=== PATIENT | male | born 1970 | race American Indian/Alaskan Native ===

== ENCOUNTER 2018-03-09 11:25 | Emergency (ER) | payer OTHER ==
--- NOTE | 2018-03-09 12:30 | Emergency Department Report ---
ED Head Injury/Laceration HPI - HPI Occurred When: Today Mechanism: Direct Blow Location: Facial Pain: Severe (05/19) Tetanus Status: Not up to Date Symptoms: Loss of Consciousness: No, Nausea: No, Blurred Vision: No, Unusual Behavior: No, Headache: Yes (headache), Swelling: Yes (facial and nasal bone swelling), Bruising: Yes (left facial area), Break in Skin: Yes (right nasal area and forehead), Bleeding: No Other History: This is a 47-year-old male brought to the hospital by his family after working on 18 brannon and sarah fell and hit him in the face. He has bruising to right facial area with 2 laceration to face. He is reporting headache without any dizziness or vomiting. He denies any loss of consciousness. He reports mild dizziness. Blood pressure is elevated at 162 over 1-2 with a history of high blood pressure. Patient denies any neck pain or stiffness or any chest wall or abdominal injury. He denies back pain. Pain is 10 over 10 to facial bone and he said he has slight frontal headache. No alleviating or exacerbating factors. Tetanus shot is not up-to-date. ED General PMH - Past Medical History General Medical History: hypertension, other (history of nasal bone fracture 4) Surgical History: no surgical history LMP (females 10-50): not applicable - Family History Significant Family History: hypertension - Social History Smoking Status: Never Smoker Alcohol Use: none Drug Use: N ED Review of Systems ROS: Stated complaint: LACREATION Other details as noted in HPI Constitutional: denies: chills, fever Eyes: denies: eye pain, eye discharge, vision change ENT: other (facial pain). denies: ear pain, throat pain, dental pain, congestion Respiratory: denies: cough, shortness of breath, SOB with exertion, SOB at rest , stridor, wheezing Cardiovascular: denies: chest pain, palpitations, edema, syncope, paroxysmal nocturnal dyspnea Gastrointestinal: denies: abdominal pain, nausea, diarrhea Genitourinary: denies: urgency, dysuria Musculoskeletal: denies: back pain, joint swelling, arthralgia Skin: other (multiple laceration). denies: rash, lesions Neurological: headache, vertigo (dizziness). denies: weakness, numbness, paresthesias, confusion, abnormal gait Hematological/Lymphatic: easy bleeding Head Inj w/lac Physical Exam - Exam General: Vital signs noted. No distress. Alert and acting appropriately. This is a 47-year-old male well-nourished well-developed in no acute distress. He is nontoxic in appearance Adult Head Front + Back: 1 - Patient with T shaped laceration to right brow. 2 - Patient with T-shaped laceration to right brow extending below right brow. Irregular shape with minimal bleeding. 3 - Irregularly-shaped laceration to right nasal bone area with minimal bleed and 4 - Small abrasion to right facial bone at cheek. 5 - #5 with nasal bone swelling and tenderness to palpate with erythema. Head: Yes PERRL (EOM intact, sclera and conjunctiva normal and normal accommodation.), No Hemotympanum, No Hematoma/Ecchymosis, No Epistaxis, No Stepoff/Deformity, No Abrasion, No Foreign Body Wound Length (cm): 4 (2 left brow that is T-shaped and minimal bleeding) Laceration Location: Facial (small abrasions to right cheek bone.), Other ( patient also have 2 cm laceration to right nasal bone proximally.) Chest, Abd, & Ext: Yes Clear Lung Sounds (CTAB, no chest wall tenderness), Yes Regular Heart Rhythm (S1 and S2, regular rate and rhythm), No Neck Pain (full range of motion and no C-spine tenderness), No Chest Injury/Pain, No Heart Murmur, No Abdominal Tenderness (normal bowel sounds in all quadrants and NTTP) , No Back Tenderness (no vertebral or paraspinal tenderness), No Extremity Injury (No cce. + 2 pulses in all extremities, no neurovascular compromise) Neuroligical (Head Inj W/O Lac: Yes Normal Speech ( No facial droop.), Yes Normal Gait (bilateral hand pocket maker strong and equal), No Lethargy, No Disorientation (GCS of 15), No Focal Numbness, No Focal Weakness - Laceration /Wound Repair Right Face Wound Location: face (patient with laceration to right brow irregular shape and extending down to right facial area at in the canthus of eye) Wound Length (cm): 4 Wound's Depth, Shape: superficial, irregular, stellate Wound Explored: no foreign body removed Irrigated w/ Saline (ccs): 200 Betadine Prep?: Yes Anesthesia: 1% Lidocaine Volume Anesthetic (ccs): 2 Wound Debrided: moderate Wound Repaired With: sutures (Vicryl) Suture Size/Type: 5:0 Number of Sutures: 14 Layer Closure?: No Sterile Dressing Applied?: Yes Right Nose Wound Location: face (right nasal area proximal) Wound Length (cm): 2 Wound's Depth, Shape: superficial, irregular, contused tissue Wound Explored: no foreign body removed Irrigated w/ Saline (ccs): 100 Betadine Prep?: Yes Anesthesia: 1% Lidocaine Volume Anesthetic (ccs): 1 Wound Debrided: moderate Wound Repaired With: sutures Suture Size/Type: 6:0 (Vicryl) Number of Sutures: 4 Layer Closure?: No Sterile Dressing Applied?: Yes ED Disposition Clinical Impression: Laceration of multiple sites of face Nasal bones, closed fracture Qualifiers: Encounter type: initial encounter Qualified Code(s): S02.2XXA - Fracture of nasal bones, initial encounter for closed fracture Facial bruising Qualifiers: Encounter type: initial encounter Qualified Code(s): S00.83XA - Contusion of other part of head, initial encounter Headache Qualifiers: Headache type: unspecified Headache chronicity pattern: acute headache Intractability: not intractable Qualified Code(s): R51 - Headache Abrasion of face Qualifiers: Encounter type: initial encounter Qualified Code(s): S00.81XA - Abrasion of other part of head, initial encounter Minor head injury without loss of consciousness Qualifiers: Encounter type: initial encounter Qualified Code(s): S09.90XA - Unspecified injury of head, initial encounter Disposition: DC-01 TO HOME OR SELFCARE Is pt being admited?: No Does the pt Need Aspirin: No Condition: Stable Instructions: Nasal Fracture (ED), Laceration (ED), Minor Head Injury (ED), Acute Headache (ED), Absorbable Suture Care (ED) Additional Instructions: Please follow up with primary care and if he did not have a primary care follow- up at [facility] in 48 hours. Please follow up with ear nose and throat regarding nasal bone fracture in 48 hours Your sutures are absorbable so you will not need to come back to the hospital for removal but please see discharge instruction and suture care Take antibiotic as prescribed Ultram can make you drowsy. please not drive or operate heavy machinery while taking this medication. Take this medication for severe pain Take Motrin for moderate pain Apply ice the nasal bone area several times a day for 15 minutes at a time Prescriptions: Cephalexin [Keflex] 500 mg PO Q8HR 5 Days #15 cap Ibuprofen [Motrin 600 MG tab] 600 mg PO Q8H PRN #15 tablet PRN Reason: Pain traMADol [Ultram 50 MG tab] 50 mg PO Q6HR PRN #20 tablet PRN Reason: Pain Referrals: ALISON ALCARAZ MD [Staff Physician] - 2-3 Days PRIMARY CARE, [Primary Care Provider] - 2-3 Days [facility] [Outside] - 2-3 Days Forms: Accompanied Note, Work/School Release Form(ED) ED Medical Decision Making - Radiology Data Radiology results: report reviewed CT scan of head and brain without contrast and CT scan of the facial bones without contrast shows bilateral nasal bone fracture otherwise no intracranial abnormality and no other extracranial abnormality seen. Patient: SHIRA ASTORGA MR#: [id number] : 1970 Acct:[id number] Age/Sex: 47 / M ADM Date: 03/09/18 Loc: ED Attending Dr: Ordering Physician: DWAIN ASTORGA MD Date of Service: 03/09/18 Procedure(s): CT head/brain wo con Accession Number(s): [id number] cc: DWAIN ASTORGA MD CT HEAD WITHOUT CONTRAST: HISTORY: Dizzy, trauma to head. TECHNIQUE: Sequential 2.5mm CT images. COMPARISON: none. FINDINGS: Cerebral Parenchyma: Within normal limits. Cerebellum: Within normal limits. Brainstem: Within normal limits. Ventricles: Normal. Sella: Normal. Extra-axial spaces: Normal. Basal Cisterns: Normal. Intracranial Hemorrhage: None. Midline Shift: None. Calvarium: Normal. Bilateral nasal bone fractures and frontal soft tissue swelling are noted. Sinuses: Normal. Mastoid Air Cells: Normal. Visualized Orbits: Normal. IMPRESSION: Cranial CT scan within normal limits. Bilateral nasal bone fractures. Transcribed By: TTR Dictated By: NAT GALLEGOS JR, MD Electronically Authenticated By: NAT GALLEGOS JR, MD Signed Date/Time: 03/09/18 1300 Cat Scan Report Signed Patient: SHIRA ASTORGA MR#: [id number] : 1970 Acct:[id number] Age/Sex: 47 / M ADM Date: 03/09/18 Loc: ED Attending Dr: Ordering Physician: DWAIN ASTORGA MD Date of Service: 03/09/18 Procedure(s): CT facial bones wo con Accession Number(s): [id number] cc: DWAIN ASTORGA MD CT FACIAL BONES WITHOUT CONTRAST: HISTORY: Dizzy with trauma to head. TECHNIQUE: Helical CT images with sagittal and coronal CT reformations. FINDINGS: Mildly displaced bilateral nasal bone fractures are identified. All paranasal sinuses are clear. No sinus wall fracture, fluid level or opacification. The orbital cavities are symmetric and intact. The left mandibular condyle is not included. The remainder of the mandible is intact. The skull base and upper cervical spine demonstrate no evidence for acute injury. IMPRESSION: Bilateral nasal bone fractures. Transcribed By: TTR Dictated By: NAT GALLEGOS JR, MD Electronically Authenticated By: NAT GALLEGOS JR, MD Signed Date/Time: 03/09/18 1258 DD/ 1257 TD/TT: 03/09/18 1258 - Medical Decision Making This is a 47-year-old male here reports that he was working on his 18 brannon and jackhammer fall on his face. He is complaining a headache without any losing of consciousness, and facial wounds. Denies any neck pain or back pain. He is to be examined Patient was seen and examined by myself. He is neurologically intact. Head and neck exam is normal. Back exam is normal. His chest and abdominal exams normal. Patient's able ambulate without any difficulties. Patient has laceration to right for him at eyebrow and also 2 areas right nasal bone area and abrasion to his right cheek area. Laceration repair under sterile procedure. Please see procedure note for details. Patient tetanus shot updated. He was given pain medication which relieved his pain. Patient had CT scan of the head and brain without contrast and also CT scan of the facial bones without contrast that was dictated by radiologist and report reviewed by myself. CT scan of the head without any intracranial abnormalities and CT scan of the facial bones with bilateral nasal bone fracture without any displacement. Patient also has nasal contusion. His oral airway is patent and he has no missing teeth. Tongue is normal. I discussed the patient and his family also discussed diagnosis and treatment plan therefore since then. I discussed the patient that he needs to follow up with ENT for bilateral nasal bone fracture he voiced understanding Bilateral nasal bone fracture status post injury-pain is controlled, Rice therapy and ice applied to site and he is to follow-up with ear nose and throat. Minor closed head injury without concussion or loss of consciousness-patient is neurologically intact and he is to follow-up with his primary care physician. Laceration multiple site to face-lacerations to face repaired. See procedure note for details. Patient given Keflex in the emergency room and will be sent home on Keflex. Abrasion-cleansed normal saline and Neosporin ointment placed the site. Tetanus vaccine updated Acute headache-better after pain medication . Patient was given Tylenol 975 mg by mouth [address] scan of the head. He requested more pain medication and was given hydrocodone 5/325 2 tablets by mouth after CT and forcibly for pain. Patient given instruction on wound care, laceration, suture, medication, CT scan results and diagnosis and the voice understanding. Surgical medicine in stable condition. Vital signs stable and is afebrile and pain is controlled. No change in neurological status while in the emergency room. He said follow-up with in nose and throat and primary care and he voiced understanding. Patient discharged home with his family in stable condition with prescription for Keflex, tramadol and ibuprofen - Differential Diagnosis facial bone fracture, intracranial abnormality, contusion, MSK pain
[2018-03-09] MEDS ORDERED: TYLENOL PO ONE (12:31)
[2018-03-09] MEDS ORDERED: XYLOCAINE 1% 20 mL INFILTRATI ONE (12:31)
[2018-03-09] MEDS ORDERED: NACL 0.9% 1000 ML 1,000 ML IV ONE (12:31)
[2018-03-09] MEDS ORDERED: KEFLEX PO ONE (12:31)
[2018-03-09] MEDS ORDERED: BOOSTRIX IM ONE (12:31)
[2018-03-09] MEDS ORDERED: NACL 0.9% IR ONE (12:34)
--- NOTE | 2018-03-09 13:04 | Cat Scan Report ---
CT FACIAL BONES WITHOUT CONTRAST: HISTORY: Dizzy with trauma to head. TECHNIQUE: Helical CT images with sagittal and coronal CT reformations. FINDINGS: Mildly displaced bilateral nasal bone fractures are identified. All paranasal sinuses are clear. No sinus wall fracture, fluid level or opacification. The orbital cavities are symmetric and intact. The left mandibular condyle is not included. The remainder of the mandible is intact. The skull base and upper cervical spine demonstrate no evidence for acute injury. IMPRESSION: Bilateral nasal bone fractures.
--- NOTE | 2018-03-09 13:06 | Cat Scan Report ---
CT HEAD WITHOUT CONTRAST: HISTORY: Dizzy, trauma to head. TECHNIQUE: Sequential 2.5mm CT images. COMPARISON: none. FINDINGS: Cerebral Parenchyma: Within normal limits. Cerebellum: Within normal limits. Brainstem: Within normal limits. Ventricles: Normal. Sella: Normal. Extra-axial spaces: Normal. Basal Cisterns: Normal. Intracranial Hemorrhage: None. Midline Shift: None. Calvarium: Normal. Bilateral nasal bone fractures and frontal soft tissue swelling are noted. Sinuses: Normal. Mastoid Air Cells: Normal. Visualized Orbits: Normal. IMPRESSION: Cranial CT scan within normal limits. Bilateral nasal bone fractures.
[2018-03-09] MEDS ORDERED: NORCO 5/325 PO ONE (16:55)
[2018-03-09 18:22] VITALS: BP 154/96
== END 2018-03-09 18:21 | disposition home or self-care (01) ==
LOC: ED 11:25
DX: S02.2XXA Fracture of nasal bones, initial encounter for closed fracture (principal); S01.21XA Laceration without foreign body of nose, initial encounter; S01.111A Laceration without foreign body of right eyelid and periocular area, initial encounter; S09.90XA Unspecified injury of head, initial encounter; W22.8XXA Striking against or struck by other objects, initial encounter; Y93.89 Activity, other specified; Y99.8 Other external cause status; Y92.89 Other specified places as the place of occurrence of the external cause
CPT/HCPCS: 70450; 70486; 90471; 90715

== ENCOUNTER 2019-08-23 07:12 | Day surgery (SDC) | payer OTHER ==
[~2019-08-23 07:12] MED LIST: SODIUM CHLORIDE 0.9% 1000 ML 1,000 ML IV SCH
--- NOTE | 2019-08-23 07:59 | Anesthesia Day of Surgery ---
Anesthesia Day of Surgery - Day of Surgery Patient Examined: Yes Patient H&P Reviewed: Yes Patient is NPO: Yes
--- NOTE | 2019-08-23 08:01 | Anesthesia Consultation ---
Anesthesia Consult and Med Hx - Airway Anesthetic Teeth Evaluation: Good ROM Head & Neck: Adequate Mental/Hyoid Distance: Adequate Mallampati Class: Class I Intubation Access Assessment: Good - Pulmonary Exam CTA: Yes - Cardiac Exam Cardiac Exam: RRR - Pre-Operative Health Status ASA Pre-Surgery Classification: ASA2 Proposed Anesthetic Plan: General, MAC - Cardiovascular System Hx Hypertension: Yes Hx Coronary Artery Disease: No - Central Nervous System Hx Neuromuscular Disorder: No - Gastrointestinal Hx Ulcer: No
[2019-08-23] MEDS ORDERED: PROPOFOL 200 MG/20 ML VIAL IV ONE ×2 (08:03→08:04)
[2019-08-23] MEDS ORDERED: LIDOCAINE MPF (2%) 20 MG/1 ML VIAL 5 ML ONE (09:00)
[2019-08-23] MEDS ORDERED: LIDOCAINE 2% UROJECT 10 ML JELLY ONE (09:35)
--- NOTE | 2019-08-23 09:47 | Short Stay Summary ---
Short Stay Documentation Date of service: 08/23/19 Narrative H&P: The patient present for diagnostic colonoscopy for rectal bleeding suspected due to hemorrhoids. Rule out neoplasia. - History Past Medical History: hypertension, other (anxiety) Past Surgical History: No surgical history Social history: no significant social history - Allergies and Medications Current Medications: Allergies No Known Allergies Allergy (Verified 06/27/13 01:37) Home Medications Medication Instructions Recorded Confirmed Last Taken Type Lisinopril/Hydrochlorothiazide 1 tab PO DAILY 08/23/19 08/23/19 08/22/19 History Active Medications Sodium Chloride (Nacl 0.9% 1000 Ml) 1,000 mls @ 50 mls/hr IV DIRECT DIANDRA Last Admin: 08/23/19 08:38 Dose: 50 mls/hr Documented by: - Physical exam General appearance: no acute distress, well-nourished Integumentary: no rash, no growths, no abnormal pigmentation HEENT: Atraumatic, PERRLA, EOMI, Mucous membr. moist/pink Lungs: Clear to auscultation, Normal air movement Breasts: deferred Heart: Regular rate, Normal S1, Normal S2, No murmurs Gastrointestinal: normoactive bowel sounds, no tenderness, no distended, no masses, no guarding, no organomegaly, no obese Male Genitourinary: deferred Rectal Exam: normal rectal tone, no mass, other (external hemorrhoidal tags present) Extremities: no ischemia, pulses intact, pulses symmetrical, No edema, normal temperature, normal color, Full ROM Neurological: Normal gait, Normal speech, Strength at 5/5 X4 ext, Normal tone, Sensation intact, Cranial nerves 3-12 NL - Brief post op/procedure progress note Date of procedure: 08/23/19 Findings: see dictation Estimated blood loss: none Pathology: list (transverse colon polyp) Specimen disposition: to lab Condition: stable - Disposition Condition at discharge: Good Disposition: DC- TO HOME OR SELFCARE Short Stay Discharge Plan Activity: other (no driving for 24 hours) Weight Bearing Status: Full Weight Bearing Diet: regular Follow up with: LAYLA NIEVES MD [Primary Care Provider] - 7 Days
[2019-08-23] MEDS ORDERED: LIDOCAINE 2% UROJECT 10 ML JELLY UR ONE (09:51)
--- NOTE | 2019-08-23 09:53 | Operative Report ---
Operative Report Operative Report: Date of procedure: 08/23/2019 Preprocedure diagnosis: Rectal bleeding Post procedure diagnosis: 2+ internal hemorrhoids. Diminutive transverse colon polyp. Procedure: Colonoscopy to the cecum with cold snare polypectomy and banding 3 of internal hemorrhoids Endoscopist: Dr. Garcia Anesthesia: Monitored anesthesia care per anesthesia department Estimated blood loss: 0 Medications: Monitored anesthesia care. See separate report by anesthesia for details. After careful discussion of the nature and purpose of the procedure as well as details of the technique risks benefits and alternatives the patient gave consent. Please see recent history and physical from the office. The patient was placed in the left lateral decubitus position and medicated per anesthesia. A rectal exam was performed sphincter tone was normal there were no masses palpable. Multiple external hemorrhoidal tags were noted. A slight degree of prolapse was also noted. The Olympus colonoscope was passed transanally and advanced under continuous direct vision without difficulty to the cecum. The colon was well prepared. The cecum was normal. The ascending colon was normal and on forward and retroflexed views. The transverse colon revealed a 5 mm sessile polyp. The polyp was removed with cold snare resection and retrieved by suction. Descending colon and sigmoid colon were normal. The rectum revealed 2+ internal hemorrhoids in retroflexed view. The colonoscope was removed followed by reinsertion of the Olympus upper scope with the banding device attached. 3 bands were placed successfully on the internal hemorrhoids. The procedure was well-tolerated overall and the patient was observed in recovery. Conclusions: Small sessile transverse colon polyp. 2+ internal hemorrhoids with a slight degree of rectal prolapse. Status post banding of internal hemorrhoids 3. Plan: Await pathology. The patient will call the office in a few weeks. Follow-up in 2-3 months. Repeat banding as needed. Repeat colonoscopy in 5 years. Signed electronically: Taj Garcia M.D.
--- NOTE | 2019-08-23 10:16 | Post Anesthesia Evaluation ---
- Post Anesthesia Evaluation Patient Participated: Yes Airway Patent: Yes Stable Respiratory Function: Yes Nausea/Vomiting: No Temp > 96.8F: Yes Pain Manageable: Yes Adequeate Hydration: Yes Anesthesia Complications: No Block Receding Appropriately: Not Applicable Patient on Ventilator: No
[2019-08-23 10:28] VITALS: BP 143/95
== END 2019-08-23 07:13 | disposition home or self-care (01) ==
LOC: GIO 07:12
PROVIDERS: ATTEND Internal Medicine Gastroenterology
DX: K62.5 Hemorrhage of anus and rectum (principal); D12.3 Benign neoplasm of transverse colon; K64.8 Other hemorrhoids; I10 Essential (primary) hypertension; F41.9 Anxiety disorder, unspecified; F32.9 Major depressive disorder, single episode, unspecified; F17.210 Nicotine dependence, cigarettes, uncomplicated; Z79.899 Other long term (current) drug therapy
CPT/HCPCS: 45385; 45398; 88305; J2704; J7030